=== PATIENT | male | born 1950 | race American Indian/Alaskan Native ===

== ENCOUNTER → 2017-08-20 | Outpatient (REF) | payer MEDICARE ==
[~2017-08-20] MED LIST: CYCL1DRO6 OP; DICL100T54 PO; FERR325C2 PO; FLU45SYR25 IM ONLY; LISI-362 PO; LISI20TA29 PO; PNEI IM; PNEU0.5D3 IM; ROS10 PO; ROSU20TA23 PO; SIMV-49 PO; TRIA-20 PO; [UNRECOGNIZED DRUG - CODE] PO
== END ==
LOC: ZZSENDIN 14:26
PROVIDERS: ATTEND Internal Medicine
DX: Z12.5 Encounter for screening for malignant neoplasm of prostate (principal); I10 Essential (primary) hypertension; I25.10 Atherosclerotic heart disease of native coronary artery without angina pectoris; R35.0 Frequency of micturition
CPT/HCPCS: 36415; 81001; 82040; 82247; 82310; 82374; 82435; 82565; 82947; 84075; 84132; 84153; 84155; 84295; 84450; 84460; 84520; 85027

== ENCOUNTER → 2017-08-27 | Outpatient (CLI) | payer MEDICARE ==
[~2017-08-27] MED LIST changes: +LEVO-85 PO
[2017-08-27 10:20] LABS: PLATELET COUNT, AUTOMATED 658 K/uL (150-450)
== END ==
LOC: LAB 09:55
PROVIDERS: ATTEND Internal Medicine
DX: E78.00 Pure hypercholesterolemia, unspecified (principal); I25.700 Atherosclerosis of coronary artery bypass graft(s), unspecified, with unstable angina pectoris
CPT/HCPCS: 36415; 85025; 87040

== ENCOUNTER → 2017-08-30 | Outpatient (CLI) | payer MEDICARE ==
--- NOTE | 2017-09-04 09:09 | RADIOLOGY IMAGING REPORT ---
FACILITY: [facility] PATIENT NAME: HEATHER NAVARRETE : [id number] MR: [id number] V: [id number] EXAM DATE: ORDERING PHYSICIAN: NATALIO MEJIA TECHNOLOGIST: Uzma Vega EXAMINATION:TWO-DIMENSIONAL ECHOCARDIOGRAPH REASON:HISTORY OF CAD 2D Measurements (normal values in centimeters) LV endLV endRV endVent.LV PostAorticLeftPercent DiastolicSystolicDiastolicSeptumWallRootAtriumShortening (3.5-5.7)(0.9-2.6)(0.6-1.1)(0.6-1.1)(2.0-3.7)(1.9-4.0)(25-35%) [id number]% STROKE VOLUME: 39ml ESTIMATED EJECTION FRACTION:64% PARASTERNAL LONG AXIS: Overall left ventricular systolic function appears to be normal. There is mild mitral annular calcification. No specific wall motion abnormalities are noted in this view. The aortic valve also appears to open normally. Color examination of the valves only reveals a trace of mitral insufficiency present. Borderline left ventricular hypertrophy is noted. The right ventricle appears to contract normally. PARASTERNAL SHORT AXIS: Aortic valve is trileaflet in configuration & appears to open normally with some aortic sclerosis but no stenosis. Trace of pulmonic insufficiency is noted. Overall left ventricular systolic function does appear to be normal. No specific wall motion abnormalities were noted. APICAL FOUR AND TWO CHAMBER: Normal left ventricular ejection fraction. No specific wall motion abnormalities noted. Color examination of the valves reveals a mild amount of tricuspid insufficiency. Trace amount of mitral insufficiency is noted. Tricuspid regurgitation Vmax is measured within normal ranges at 2.8mm/sec. Aortic valve area & mitral valve area both measure within normal ranges at 2.7 & 2.5cm2 respectively. Left atrial volume is upper range of normal at 28ml/m2. Right atrial volume is upper range of normal at 23ml/m2. IVC is normal in size. SUBCOSTAL VIEW: No pericardial effusion was noted. No atrioseptal or ventriculoseptal defects were appreciated. Doppler examination of the mitral valve in diastole does reveal the A wave > E wave. OVERALL IMPRESSION: 1. Normal left ventricular ejection fraction of 64% with a Grade 1/4 decrease in diastolic function. 2. Normal chamber sizes with the right ventricle being maybe slightly enlarged. Right ventricular function appears to be normal. Left atrial & right atrial volumes also measure within normal ranges. The aortic valve area & mitral valve area both measure within normal ranges. There is borderline concentric left ventricular thickening but no evidence for any outflow tract obstruction. 3. The aortic valve is trileaflet in configuration with mild aortic sclerosis but no stenosis. 4. There is mild mitral annular calcification but no mitral stenosis. There is only a trace of mitral insufficiency present. 5. A trace of pulmonic insufficiency & a mild amount of tricuspid insufficiency. The estimated right ventricular systolic pressure is measured within normal ranges at 35mm Hg which does include an estimated right atrial pressure of 3mm Hg. Dictated by: Darcie Ford M.D. on 08/30/2017 at 12:57 Transcribed by: MEÑO on 08/30/2017 at 14:03 Approved by: Darcie Ford M.D. on 09/04/2017 at 9:06 [facility]
== END ==
LOC: US 02:58
PROVIDERS: ATTEND Internal Medicine
DX: I50.30 Unspecified diastolic (congestive) heart failure (principal); I51.7 Cardiomegaly; I25.700 Atherosclerosis of coronary artery bypass graft(s), unspecified, with unstable angina pectoris; I34.0 Nonrheumatic mitral (valve) insufficiency; I37.1 Nonrheumatic pulmonary valve insufficiency; I07.1 Rheumatic tricuspid insufficiency
CPT/HCPCS: 93306

== ENCOUNTER → 2017-09-13 | Outpatient (CLI) | payer MEDICARE ==
[~2017-09-13] MED LIST changes: +ASPI-1471 PO; +ESCI10TA8 PO; +METO25TA93 PO; +TAMS0.4C70 PO
[2017-09-13 11:48] LABS: PLATELET COUNT, AUTOMATED 535 K/uL (150-450)
--- NOTE | 2017-09-13 14:09 | RADIOLOGY IMAGING REPORT ---
[place] [facility] [place] NAME: Ray Rodriguez : 1950 MR: [id number] V: [id number] EXAM DATE: ORDERING PHYSICIAN: IVANIA BAIG TECHNOLOGIST: Location: [facility] [place] Patient: Ray Rodriguez : 1950 Visit/Account:[id number] Date of Sevice: 09/13/2017 Exam type: CHEST PA AND LAT History: Benign hypertension coronary artery disease, fever and fatigue anemia hyperlipidemia Comparison: None. Findings: A small to moderate posterior layering bilateral pleural effusions. There is no evidence of focal in filtrates. Small amount linear stranding left lung base may represent scarring versus atelectasis. Cardiac silhouette is normal in size. There are sternotomy sutures and mediastinal clips. Moderate spondylotic changes of the thoracic spine are present IMPRESSION: 1. Small to moderate bilateral posterior layering pleural effusions Small amount scarring versus atelectasis in the left lung base Report Dictated By: Katherine Everett MD at 09/13/2017 2:04 PM Report E-Signed By: Katherine Everett MD at 09/13/2017 2:05 PM WSN:[email or web address]
== END ==
LOC: LAB 11:09
PROVIDERS: ATTEND Internal Medicine
DX: I10 Essential (primary) hypertension (principal); I25.810 Atherosclerosis of coronary artery bypass graft(s) without angina pectoris; R53.83 Other fatigue; R50.9 Fever, unspecified; E78.5 Hyperlipidemia, unspecified; D64.9 Anemia, unspecified
CPT/HCPCS: 36415; 71046; 81001; 82040; 82247; 82310; 82374; 82435; 82550; 82565; 82728; 82947; 84075; 84132; 84155; 84295; 84443; 84450; 84460; 84520; 85025; 85651; 86140; 87040

== ENCOUNTER 2017-09-20 14:00 | Outpatient (RCR) | payer MEDICARE ==
[2017-09-04 15:38] VITALS: BP 118/84
[2017-09-04 15:42] VITALS: BP 120/80
--- NOTE | 2017-09-04 16:24 | CARDIAC REHAB PLAN OF CARE ---
Physician: Vinay Patient is being seen: HurdJonnathan cruzlett Medical Diagnosis: CABG x4 Date of Onset: 08/12/2017 Date patient was last seen: 09/04/2017 SHORT TERM GOALS Short Term Goals Due Date: 10/02/17 Short Term Goals: Short term goals include increasing exercise tolerance and encouraging the recovery process following cardiac surgery. Patient will start with 25 total minutes of exercise with a goal to progress towards 150min/week. As the patient continues to recover, it is a goal to slowly incorporate strength and balance training. Short Term Goals Met: Short Term Goals Not Met Due To: HALFWAY GOALS [employer] Goal Due Date: 11/02/17 [employer] Goals: Within the next few months it is a goal to increase exercise tolerance at higher intensities. This include increasing the target heart rate to above 100bpm for the patient during moderate intensity exercise, as well as exercising at a reported 4-5 RPE. Since the patient is currently active, a skilled nursing goal will be to reach 150min/wk at [facility] while starting to incorporate light aerobic exercise at home on . [employer] Goals Met: Detention Goals Not Met Due To: PATIENT'S GOALS Patient Goals Due Date: 10/02/17 Patient Goals: Patient's goals include being able to do his basic activities again, and being able to enjoy life and the activities he loves (such as hiking ). Patient would also like to increase his energy levels and his quality of sleep through the course of this program. Patient Goals Met: Patient Goals Not Met Due To: Cardiac Rehabilitation Plan of Care Comment: Over the follwoing sessions [facility] staff will work together to help progress the patient's exercise prescription appropriately. We will monitor vitals including HR, SPO2, BP, and ECG through telemetry. We will then use this information as well as subjective information reported by the patient to make adjustments where appropriate. We will also incorporate educational components to his exercise sessions with information pertaining to dietary changes, activity, and stress management. Patient will begin exercising on the treadmill and recumbent bike for a total of 25 minutes pending his subjective feedback. HR should be maintained below 100bpm, preferably between 85-95bpm and an RPE between 3-4. Staff will encourage increasing total exercise volume/duration first before they encourage increasing exercise intensity. DREWD
[2017-09-06 17:09] VITALS: BP 120/80
[2017-09-06 17:10] VITALS: BP 108/70
[2017-09-09 16:26] VITALS: BP 118/76
[2017-09-09 16:27] VITALS: BP 124/70
[2017-09-11 17:35] VITALS: BP 118/78
[2017-09-11 17:36] VITALS: BP 122/78
[2017-09-16 15:50] VITALS: BP_SYST 120; BP_SYST 128; BP_DIAS 70; BP_DIAS 80
[2017-09-18 17:07] VITALS: BP 138/86
[2017-09-18 17:09] VITALS: BP 144/88
[2017-09-20 17:06] VITALS: BP 120/80
[2017-09-20 17:07] VITALS: BP 128/78
== END 2017-09-20 18:00 | disposition home or self-care (01) ==
LOC: CARD 14:00
PROVIDERS: ATTEND Internal Medicine
DX: Z95.1 Presence of aortocoronary bypass graft (principal); M17.12 Unilateral primary osteoarthritis, left knee; I10 Essential (primary) hypertension; Z87.891 Personal history of nicotine dependence
CPT/HCPCS: 93798

== ENCOUNTER → 2017-09-20 | Outpatient (CLI) | payer MEDICARE ==
[2017-09-20 13:33] LABS: PLATELET COUNT, AUTOMATED 474 K/uL (150-450)
--- NOTE | 2017-09-20 14:06 | RADIOLOGY IMAGING REPORT ---
[place] [facility] [place] NAME: Ray Rodriguez : 1950 MR: [id number] V: [id number] EXAM DATE: ORDERING PHYSICIAN: IVANIA BAIG TECHNOLOGIST: Location: [facility] Patient: Ray Rodriguez : 1950 Visit/Account:[id number] Date of Sevice: 09/20/2017 Exam type: CHEST PA AND LAT History: Pl. Effusion benign hypertension, coronary artery disease, fever and fatigue Comparison: September 13, 2017. Findings: Small to moderate posterior layering bilateral pleural effusions are again seen and appear relatively unchanged. Small amount of stranding the left lung base appear similar to the prior study and may r epresent scarring or atelectasis. Is a small patchy area of increased density projecting over the le ft lung base slightly increased when compared the prior study The cardiac silhouette is normal in si ze. There are sternotomy sutures present. There is no evidence of overt pulmonary edema. There are moderate spondylotic changes of the thoracic spine. IMPRESSION: 1. Small to moderate posterior layering bilateral pleural effusions appear unchanged Small amount scarring versus atelectasis in the left lung base appears unchanged Is a patchy area of increased density over the left lung base slightly increased when compared the pr ior study. This could represent a developing infiltrate or other areas airspace consolidation. Shor t-term interval follow-up recommended Report Dictated By: Katherine Everett MD at 09/20/2017 1:59 PM Report E-Signed By: Katherine Everett MD at 09/20/2017 2:03 PM WSN:[email or web address]
== END ==
LOC: RAD 13:16
PROVIDERS: ATTEND Internal Medicine
DX: J90 Pleural effusion, not elsewhere classified (principal); R91.8 Other nonspecific abnormal finding of lung field; R50.9 Fever, unspecified; R53.83 Other fatigue; I25.810 Atherosclerosis of coronary artery bypass graft(s) without angina pectoris; I10 Essential (primary) hypertension
CPT/HCPCS: 36415; 71046; 82040; 82247; 82310; 82374; 82435; 82565; 82947; 84075; 84132; 84155; 84295; 84450; 84460; 84520; 85025; 85651; 86038; 86140; 86430

== ENCOUNTER → 2017-11-15 | Outpatient (CLI) | payer MEDICARE ==
[2017-11-15 07:47] LABS: PLATELET COUNT, AUTOMATED 339 K/uL (150-450)
[2017-11-15 12:21] LABS: LDL CHOLESTEROL 75 mg/dl
== END ==
LOC: LAB 07:18
PROVIDERS: ATTEND Internal Medicine
DX: I25.810 Atherosclerosis of coronary artery bypass graft(s) without angina pectoris (principal); I10 Essential (primary) hypertension; E78.5 Hyperlipidemia, unspecified; D64.9 Anemia, unspecified; D64.89 Other specified anemias
CPT/HCPCS: 36415; 81001; 82040; 82247; 82310; 82374; 82435; 82465; 82565; 82728; 82947; 83540; 83550; 83718; 84075; 84132; 84155; 84295; 84450; 84460; 84478; 84520; 85025; 85651; 86140

== ENCOUNTER → 2018-12-02 | Outpatient (CLI) | payer MEDICARE ==
[~2018-12-02] MED LIST changes: +CARI-327 PO; +CYCL10TA29 PO; -ROS10 PO; +ROSU10TA PO; -ROSU20TA23 PO; +ROSU20TA24 PO; +[UNRECOGNIZED DRUG - CODE] PO; -[UNRECOGNIZED DRUG - CODE] PO
[2018-12-02 09:10] LABS: PLATELET COUNT, AUTOMATED 216 K/uL (150-450)
== END ==
LOC: LAB 08:31
PROVIDERS: ATTEND Internal Medicine
DX: Z12.5 Encounter for screening for malignant neoplasm of prostate (principal); E78.5 Hyperlipidemia, unspecified; D64.9 Anemia, unspecified; I25.810 Atherosclerosis of coronary artery bypass graft(s) without angina pectoris; I10 Essential (primary) hypertension
CPT/HCPCS: 36415; 81001; 82728; 83540; 83550; 84443; 85025; G0103; 82040; 82247; 82310; 82374; 82435; 82465; 82565; 82947; 83718; 84075; 84132; 84153; 84155; 84295; 84450; 84460; 84478; 84520